=== PATIENT | female | born 1970 | race African-American/Black ===

== ENCOUNTER 2017-04-20 05:30 | Observation (INO) | payer BC, OTHER ==
[~2017-04-20] VITALS: Ht 170.2 cm; Wt 116.0 kg
[2017-04-20] VITALS: BP 127/74; PULSE 92; RESP 20; TEMP 98.6; O2SAT 96
[~2017-04-20 05:30] MED LIST: IRON TABLET PO
[2017-04-20] MEDS ORDERED: INSULIN HUMAN REGULAR 1,000 UNITS/10 ML VIAL SQ PRN (05:45)
[2017-04-20] MEDS ORDERED: METOPROLOL TARTRATE 25 MG TAB PO PRN (05:45)
[2017-04-20] MEDS ORDERED: SODIUM CHLORID 0.9% 500 ML IV PRN (05:45)
[2017-04-20] MEDS ORDERED: POVIDONE IODINE 5% (ANTISEPSIS KIT) 4 APPLICATIONS EACH NARE PRN (05:45)
[2017-04-20] MEDS ORDERED: CHLORHEXIDINE GLUCONATE 2 % 1 PACK (2 CLOTHS) TOPICAL PRN (05:45)
[2017-04-20] MEDS ORDERED: LACTATED RINGER'S 1000 ML IV PRN (05:45)
[2017-04-20] MEDS ORDERED: ceFAZolin 2 GM PREMIX 50 ML IV SCH (06:00)
[2017-04-20] MEDS ORDERED: SCOPOLAMINE 1.5 MG PATCH T-DERMAL SCH (06:00)
[2017-04-20] MEDS ORDERED: APREPITANT 40 MG CAP PO SCH (06:00)
[2017-04-20] MEDS ORDERED: ACETAMINOPHEN 1000 MG/100 ML 100 ML IV SCH (06:00)
[2017-04-20] MEDS ORDERED: ONDANSETRON HCL 4 MG/2 ML VIAL IV PUSH SCH (06:00)
[2017-04-20] MEDS ORDERED: metroNIDAZOLE 500 MG INJ 100 ML IV SCH (06:00)
[2017-04-20] MEDS ORDERED: HYDR12.57 PO (06:08)
[2017-04-20] MEDS ORDERED: AMLO10 PO (06:08)
[2017-04-20] MEDS ORDERED: BUPIVACAINE/EPINEPHRINE 0.25% 50 ML VIAL ONE (06:29)
[2017-04-20] MEDS ORDERED: METHYLENE BLUE 10 MG/ML VIAL OTHER ONE (07:43)
[2017-04-20] MEDS ORDERED: Post-op Orders (for Pharmacy) MISC OTHER ONE (08:15)
[2017-04-20] MEDS ORDERED: SODIUM CHLORIDE 0.9% FLUSH 10 ML FLUSH IV FLUSH PRN (08:15)
[2017-04-20] MEDS ORDERED: DO NOT ADM ANY ANTICOAGULANT DRUGS PRN (08:26)
[2017-04-20] MEDS ORDERED: *morphine SULFATE 8 MG/ML PERIprocedure ONLY ONE ×3 (08:38→09:34)
[2017-04-20] MEDS: D5-1/2 NS + KCL 20 MEQ INJ 1,000 ML IV SCH ×2 (08:56→18:33)
[2017-04-20] MEDS: METOCLOPRAMIDE HCL 10 MG/2 ML VIAL IV PUSH SCH ×3 (09:28→21:36)
[2017-04-20] MEDS ORDERED: LIDOCAINE HCL 1% PF 5 ML AMPULE OTHER ONE (12:00)
[2017-04-20] MEDS ORDERED: ACETAMINOPHEN 325MG/HYDROcodone 7.5MG/15ML UDC PO PRN ×2 (12:00)
[2017-04-20] MEDS ORDERED: HYDROmorphone HCL PF 1 MG/ML VIAL IV PUSH PRN (12:00)
[2017-04-20] MEDS ORDERED: ePHEDrine/NS 25 MG/5 ML SYR IV ONE (12:00)
[2017-04-20] MEDS ORDERED: PROPOFOL 200 MG/20 ML AMP IV ONE (12:00)
[2017-04-20] MEDS ORDERED: GLYCOPYRROLATE 1 MG/5 ML SYRINGE IV PUSH ONE (12:00)
[2017-04-20] MEDS ORDERED: LACTATED RINGER'S 1000 ML INJ 1,000 ML IV ONE (12:00)
[2017-04-20] MEDS ORDERED: NEOSTIGMINE 3 MG/3 ML SYR IV ONE (12:00)
[2017-04-20] MEDS ORDERED: ONDANSETRON HCL 4 MG/2 ML VIAL IV PUSH ONE (12:00)
[2017-04-20] MEDS ORDERED: KETOROLAC TROMETHAMINE 30 MG/ML (IVP) VIAL IV PUSH ONE (12:00)
[2017-04-20] MEDS ORDERED: ROCURONIUM INJ 50 MG/5 ML SYRINGE IV PUSH ONE (12:00)
[2017-04-20] MEDS ORDERED: diphenhydrAMINE HCL ELIXIR 12.5 MG/5 ML CUP PO PRN (12:00)
[2017-04-20] MEDS ORDERED: ENALAPRILAT 1.25 MG/ML VIAL IV PUSH PRN (12:00)
[2017-04-20] MEDS ORDERED: diphenhydrAMINE HCL 50 MG/ML VIAL IV PUSH PRN (12:00)
[2017-04-20] MEDS ORDERED: PHENYLEPH/NS 1000 MCG/10 ML SYR IV ONE (12:00)
[2017-04-20] MEDS: ENOXAPARIN SODIUM 40 MG/0.4 ML SYRINGE SQ SCH (12:30)
[2017-04-20 18:28] VITALS: BP 111/62; PULSE 74; RESP 16; TEMP 96.2; O2SAT 97
[2017-04-20] MEDS: ONDANSETRON HCL 4 MG/2 ML VIAL IV PUSH PRN (18:33)
[2017-04-20 20:00] VITALS: BP 118/73; PULSE 91; RESP 18; TEMP 96.9; O2SAT 93
[2017-04-20] MEDS: SODIUM CHLORIDE 0.9% FLUSH 10 ML FLUSH IV FLUSH SCH (20:32)
--- NOTE | 2017-04-20 22:48 | MP ---
cc: ROGER YOUNG DATE OF : 1970 DATE OF SURGERY: 04/20/2017 PREOPERATIVE DIAGNOSIS: Morbid obesity with a BMI of 40, complicated by essential hypertension. POSTOPERATIVE DIAGNOSIS: Morbid obesity with a BMI of 40, complicated by essential hypertension. OPERATION: Laparoscopic vertical sleeve gastrectomy over a 36-[place] bougie. SURGEON Roger Young MD. [facility] Ray Mcknight MD. Dr. Mcknight assistance was necessary for the procedure due to the complexity of the procedure. Dr Mcknight was necessary for manipulation and exposure dure the procedure. Dr. Mcknight participated during the entire procedure. The assistant to the president provided by [email or web address] was utilized for managing\the camera ANESTHESIA General endotracheal anesthesia ESTIMATED BLOOD LOSS Scant FINDINGS Fatty liver SPECIMEN None COMPLICATIONS None. DESCRIPTION OF PROCEDURE: The patient was brought to the operating room and placed on the operating table in supine position, bilateral sequential inflation device placed on lower extremities. General anesthesia was instituted. Antibiotics was initiated. The abdomen was prepped and draped sterilely. A point 15 cm distal to the xiphoid in the midline was anesthetized with 0.25% Marcaine with epinephrine. A skin incision was made, 5-mm OptiView port placed under direct vision and pneumoperitoneum created. Under direct vision, three 5-mm left upper quadrant, a 15-mm right upper quadrant, 5-mm right upper quadrant ports placed. Prior to placement of all ports the skin and peritoneum were anesthetized with 0.25% Marcaine with epinephrine. The patient was placed in reverse Trendelenburg position left side up, the Lupe-Flex retractor was placed. The left lobe of the liver was retracted. The vasculature along the greater curvature of the stomach was using harmonic scalpel starting a distance 5-cm proximal to the pylorus and carried towards the angle of His. The angle of His was taken down bluntly. Posterior ligamentous attachments were sharply . A 36-[place] [employer] bougie was placed at the start of the case, was placed on suction. Division of the stomach started 5 cm proximal to the pylorus and carried towards the angle of His to completely excise approximately 80% of the stomach. This was performed using an Box Flex stapler at the pylorus. The first firing was with a black load, followed by a green load and four gold loads. All staple loads were reinforced with SeamGuard. A distance of 2 cm was left from the angle incisura and the staple line and a distance of 1 cm left from the GE junction and the staple line. The pylorus was then occluded, methylene blue tinged saline was instilled. There was no evidence of extravasation. The gastrocolic ligament was then sutured to the posterior leaflet of the SeamGuard using a 2-0 Vicryl suture in a running manner. Bleeding points were controlled with Evicel. The excised stomach was removed from the peritoneal cavity through the 15-mm port site. The fascia at the 15-mm port site was approximated with 0 Vicryl suture. The CO2 was then released, all ports were removed, all skin incisions closed with 4-0 Monocryl. The abdominal wall was cleaned. A sterile dressing was placed. The patient was awakened and taken to the recovery room. MD PALLAVI Kumari/CLARISSA /5:42 PM /10:40 PM MTDEric
[2017-04-21] VITALS: BP_SYST 130; BP_SYST 138; BP_DIAS 63; BP_DIAS 74; PULSE 92; RESP 20; TEMP 98.6; O2SAT 96
[2017-04-21] MEDS: D5-1/2 NS + KCL 20 MEQ INJ 1,000 ML IV SCH (00:11)
[2017-04-21] MEDS: METOCLOPRAMIDE HCL 10 MG/2 ML VIAL IV PUSH SCH (04:13)
[2017-04-21 08:00] VITALS: BP 136/76; PULSE 82; RESP 18; TEMP 99.1; O2SAT 96
[2017-04-21] MEDS: ONDANSETRON HCL 4 MG/2 ML VIAL IV PUSH PRN (08:33)
[2017-04-21] MEDS: SODIUM CHLORIDE 0.9% FLUSH 10 ML FLUSH IV FLUSH SCH (09:00)
[2017-04-21] MEDS ORDERED: PANTOPRAZOLE SOD 40 MG DELAYED RELEASE TAB PO SCH (09:00)
[2017-04-21 12:00] VITALS: BP 135/78; PULSE 80; RESP 17; TEMP 98.7; O2SAT 96
[2017-04-21] MEDS ORDERED: METOCLOPRAMIDE HCL 10 MG/2 ML VIAL IV PUSH PRN (12:00)
[2017-04-21] MEDS: ENOXAPARIN SODIUM 40 MG/0.4 ML SYRINGE SQ SCH (13:00)
[2017-04-21 13:18] VITALS: O2SAT 98
--- NOTE | 2017-04-21 14:22 | HHI.PR ---
Subjective Subjective Notes Laying in bed. Pain well controlled. Slowly increasing fluids. Passing flatus Objective Vitals/I&O Vital Signs Date Time Temp Pulse Resp B/P (MAP) Pulse Ox O2 Delivery O2 Flow Rate FiO2 04/21/17 13:18 98 04/21/17 12:00 98.7 80 17 135/78 (97) 04/20/17 11:30 Room Air Cardiovascular: Regular Lungs: Clear Abdomen: Post-op tenderness Extremities: Perfused Wound Wound : Wound Location: Abdomen Appearance: Clean & Dry A/P Assessment and Plan 46yo F POD#1 Laparoscopic VSG -Continue with frequent ambulation -Continue to increase fluids as tolerated Discharge Planning D/C home probably today Bhavna Angel Apr 21, 2017 14:22
[2017-04-21 16:00] VITALS: BP 132/62; PULSE 92; RESP 18; TEMP 99.6; O2SAT 95
== END 2017-04-21 19:49 | disposition home or self-care (01) ==
LOC: HSDC 05:30 → N07A 18:16
PROVIDERS: ADMIT Surgery; ATTEND Surgery
DX: E66.01 Morbid (severe) obesity due to excess calories (principal); K76.0 Fatty (change of) liver, not elsewhere classified; R31.29 Other microscopic hematuria; Z68.41 Body mass index [BMI] 40.0-44.9, adult; I10 Essential (primary) hypertension; G44.219 Episodic tension-type headache, not intractable; K21.9 Gastro-esophageal reflux disease without esophagitis; R79.89 Other specified abnormal findings of blood chemistry; A04.8 Other specified bacterial intestinal infections; R73.03 Prediabetes; E55.9 Vitamin D deficiency, unspecified; R00.0 Tachycardia, unspecified
CPT/HCPCS: 00797; 43775; 94150; 96372; 96374; 96376; G0378; J0131; J0690; J1650; J1885; J2270; J2370; J2405; J2710; J2765; J3010; J3480; J7120; J8501